=== PATIENT | female | born 1935 | race Hispanic/Latino ===

== ENCOUNTER 2017-06-21 16:52 | Emergency (ER) | payer MEDICARE ==
[~2017-06-21 16:52] MED LIST: ATOR10TA69 PO; CARV3.1262 PO; DULO40CA2 PO; GUAI-487 PO; LEVE250T PO; LEVO250T2 PO; LEVO75TA10 PO; LOSA25TA21 PO; WARF2TAB57 PO
[2017-06-21] MEDS ORDERED: KETOROLAC TROMETHAMINE 15MG/ML ONE (17:25)
[2017-06-21] MEDS ORDERED: CYCLOBENZAPRINE HCL 10 MG TABLET ONE (17:26)
[2017-06-21] MEDS ORDERED: DIAZEPAM 5 MG TABLET ONE (17:26)
[2017-06-21 17:35] LABS: BASOPHILS % (AUTO) 0.8 % (0.0-5.0); EOSINOPHILS % (AUTO) 4.3 % (0.0-8.0); HEMATOCRIT 34.7 % (36-48); LYMPHOCYTES % (AUTO) 22.8 % (21.0-51.0); MEAN CORPUSCULAR HEMOGLOBIN 31.7 pg (27.0-33.0); MEAN CORPUSCULAR HGB CONC 34.4 g/dL (32.0-36.0); MEAN CORPUSCULAR VOLUME 92.1 fL (79-99); MONOCYTES % (AUTO) 10.6 % (3.0-13.0); NEUTROPHILS % (AUTO) 61.5 % (40.0-77.0); PLATELET COUNT (AUTO) 157 K/uL (130-400); RED BLOOD CELL COUNT(AUTO) 3.76 MIL/uL (4.00-5.50); RED CELL DISTRIBUTION WIDTH 14.8 % (11.0-15.5); WHITE BLOOD COUNT (AUTO) 7.8 K/uL (4.8-10.8)
[2017-06-21 17:48] LABS: CREATININE 0.8 mg/dL (0.5-1.5); POTASSIUM 3.9 mmol/L (3.5-5.1)
[2017-06-21 17:51] LABS: INR 2.51 (0.85-1.15); PARTIAL THROMBOPLASTIN TIME 35.9 SEC (26.3-35.5); PROTHROMBIN TIME 25.9 SEC (9.6-11.6)
[2017-06-21 18:03] LABS: ALBUMIN 3.5 g/dL (3.5-5.0); BILIRUBIN,TOTAL 0.4 mg/dL (0.2-1.0); TOTAL PROTEIN, SERUM 6.4 g/dL (6.0-8.3)
== END 2017-06-21 19:08 | disposition home or self-care (01) ==
LOC: EDH 16:52
DX: S09.8XXA Other specified injuries of head, initial encounter (principal); M54.2 Cervicalgia; E78.5 Hyperlipidemia, unspecified; I10 Essential (primary) hypertension; M81.0 Age-related osteoporosis without current pathological fracture; E07.9 Disorder of thyroid, unspecified; G30.9 Alzheimer's disease, unspecified; R79.1 Abnormal coagulation profile; Z86.73 Personal history of transient ischemic attack (TIA), and cerebral infarction without residual deficits; Z95.1 Presence of aortocoronary bypass graft; Z88.8 Allergy status to other drugs, medicaments and biological substances; W18.39XA Other fall on same level, initial encounter; Y93.01 Activity, walking, marching and hiking; Y92.89 Other specified places as the place of occurrence of the external cause; Y99.8 Other external cause status
CPT/HCPCS: 36415; 70450; 71045; 72125; 72170; 73070; 80053; 84484; 85025; 85610; 85730; 93005; 96374; 99285; J1885

== ENCOUNTER 2017-06-29 08:35 | Emergency (ER) | payer MEDICARE ==
[2017-06-29 09:06] LABS: BASOPHILS % (AUTO) 0.5 % (0.0-5.0); EOSINOPHILS % (AUTO) 2.2 % (0.0-8.0); HEMATOCRIT 36.2 % (36-48); LYMPHOCYTES % (AUTO) 17.2 % (21.0-51.0); MEAN CORPUSCULAR HEMOGLOBIN 31.6 pg (27.0-33.0); MEAN CORPUSCULAR HGB CONC 34.1 g/dL (32.0-36.0); MEAN CORPUSCULAR VOLUME 92.6 fL (79-99); MONOCYTES % (AUTO) 8.4 % (3.0-13.0); NEUTROPHILS % (AUTO) 71.7 % (40.0-77.0); PLATELET COUNT (AUTO) 143 K/uL (130-400); RED BLOOD CELL COUNT(AUTO) 3.91 MIL/uL (4.00-5.50); WHITE BLOOD COUNT (AUTO) 8.6 K/uL (4.8-10.8)
[2017-06-29 09:31] LABS: INR 2.46 (0.85-1.15); PARTIAL THROMBOPLASTIN TIME 36.9 SEC (26.3-35.5); PROTHROMBIN TIME 25.4 SEC (9.6-11.6)
[2017-06-29 09:33] LABS: B-TYPE NATRIURETIC PEPTIDE 135 pg/mL (0-100)
[2017-06-29 09:37] LABS: RAPID GROUP A STREP NEGATIVE (NEGATIVE)
[2017-06-29 09:44] LABS: APPEARANCE,URINE Cloudy (CLEAR); BILIRUBIN,URINE Negative (NEGATIVE); COLOR,URINE Dark Yellow (YELLOW); GLUCOSE, URINE (UA) Negative (NEGATIVE); KETONES,URINE Negative (NEGATIVE); LEUKOCYTE ESTERASE ,URINE Large (NEGATIVE); NITRATE,URINE Negative (NEGATIVE); OCCULT BLOOD,URINE Trace (NEGATIVE); PROTEIN,URINE Trace (NEGATIVE); UROBILINOGEN,URINE 0.2 mg/dL (0.2-1.0)
[2017-06-29 09:49] LABS: CREATININE 0.8 mg/dL (0.5-1.5); POTASSIUM 3.9 mmol/L (3.5-5.1)
[2017-06-29 09:52] LABS: BACTERIA,URINE Few /HPF (None Seen); RBC,URINE 0-1 /HPF (0-1); SQUAMOUS EPITHELIAL CELL,UR Few /LPF (0-2); WBC,URINE TNTC /HPF (0-1)
[2017-06-29 09:54] LABS: BILIRUBIN,TOTAL 0.8 mg/dL (0.2-1.0); TOTAL PROTEIN, SERUM 7.2 g/dL (6.0-8.3)
[2017-06-29 10:14] LABS: T4 (THYROXINE) 8.2 mcg/dL (4.7-13.3); THYROID STIMULATING HORMONE 3.87 uIU/mL (0.36-3.74)
[2017-06-29] MEDS ORDERED: CEFTRIAXONE SODIUM 1 GM ONE (10:27)
[2017-06-29] MEDS ORDERED: ACETAMINOPHEN-CODEINE ELIXIR 5 ML UDCUP ONE (10:28)
== END 2017-06-29 11:06 | disposition home or self-care (01) ==
LOC: EDH 08:35
DX: F05 Delirium due to known physiological condition (principal); G30.9 Alzheimer's disease, unspecified; F02.80 Dementia in other diseases classified elsewhere, unspecified severity, without behavioral disturbance, psychotic disturbance, mood disturbance, and anxiety; I10 Essential (primary) hypertension; E78.5 Hyperlipidemia, unspecified; E07.9 Disorder of thyroid, unspecified; M81.0 Age-related osteoporosis without current pathological fracture; Z86.73 Personal history of transient ischemic attack (TIA), and cerebral infarction without residual deficits; Z79.01 Long term (current) use of anticoagulants
CPT/HCPCS: 36415; 70450; 71045; 80053; 81001; 83605; 83880; 84436; 84443; 84481; 84484; 85025; 85610; 85730; 87804 ×2; 87880; 93005; 96372; 99285; J0696

== ENCOUNTER → 2017-10-17 | Outpatient (CLI) | payer MEDICARE | END | disposition home or self-care (01) | LOC: RAH 12:56 | PROVIDERS: ATTEND Internal Medicine | DX: S09.90XS Unspecified injury of head, sequela (principal); G31.9 Degenerative disease of nervous system, unspecified; R41.0 Disorientation, unspecified; X58.XXXD Exposure to other specified factors, subsequent encounter | CPT/HCPCS: 70450 ==